=== PATIENT | female | born 1970 ===

== ENCOUNTER 2018-06-25 18:31 | Outpatient (CLI) | payer MEDICARE, MEDICAID | END 2018-06-25 18:32 | disposition home or self-care (01) | LOC: C.SLEEP 18:32 | DX: G47.33 Obstructive sleep apnea (adult) (pediatric) (principal); E66.1 Drug-induced obesity ==

== ENCOUNTER 2018-08-15 17:35 | Outpatient (CLI) | payer MEDICARE, MEDICAID | END 2018-08-15 17:36 | disposition home or self-care (01) | LOC: C.SLEEP 17:35 | DX: G47.33 Obstructive sleep apnea (adult) (pediatric) (principal) ==